=== PATIENT | female | born 1970 | race Asian ===

== ENCOUNTER 2016-07-05 02:55 | Inpatient (IN) | payer SELFPAY ==
[~2016-07-05] VITALS: Ht 158 cm; Wt 57.0 kg
[2016-07-05] MEDS ORDERED: OXYTOCIN 20 UNITS/LR PREMIX 1,000 ML IV SCH (03:11)
[2016-07-05] MEDS ORDERED: LACTATED RINGERS 1,000 ML IV SCH (03:11)
[2016-07-05 03:14] VITALS: BP 145/84
[2016-07-05] MEDS ORDERED: AMPICILLIN 2,000 MG in NACL 0.9% 100 ML IV SCH (03:15)
[2016-07-05] MEDS ORDERED: IBUPROFEN 800 MG TAB PO PRN ×2 (03:15→05:10)
[2016-07-05] MEDS ORDERED: PROMETHAZINE 25 MG/ML VIAL IVP PRN (03:15)
[2016-07-05] MEDS ORDERED: NALBUPHINE 10 MG/ML AMP IVP PRN (03:15)
[2016-07-05] MEDS ORDERED: CARBOPROST 250 MCG/ML AMP IM PRN (03:15)
[2016-07-05] MEDS ORDERED: METHYLERGONOVINE 0.2 MG/ML AMP IM SCH (03:15)
[2016-07-05] MEDS ORDERED: PROMETHAZINE 25 MG/ML VIAL ONE (03:47)
[2016-07-05] MEDS ORDERED: NALBUPHINE HYDROCHLORIDE 10 MG/ML VIAL ONE (03:47)
[2016-07-05 03:57] LABS: BASOPHILS # (AUTO) 0.1 K/uL (0.00-0.22); BASOPHILS % (AUTO) 0.6 % (0.0-2.0); EOSINOPHILS # (AUTO) 0.1 K/uL (0-0.4); EOSINOPHILS % (AUTO) 0.7 % (0.0-4.0); HEMATOCRIT 38.3 % (36-48); HEMOGLOBIN 12.5 g/dL (12.0-16.0); LYMPHOCYTES % (AUTO) 20.3 % (20.5-51.1); MEAN CORPUSCULAR HEMOGLOBIN 29 pg (27-31); MEAN CORPUSCULAR HGB CONC 33 g/dL (33-37); MEAN CORPUSCULAR VOLUME 88 fL (80-94); MONOCYTES # (AUTO) 0.5 K/uL (0.8-1.0); MONOCYTES % (AUTO) 5.4 % (1.7-9.3); NEUTROPHILS # (AUTO) 7.3 K/uL (1.8-7.7); PLATELET COUNT (AUTO) 126 K/uL (140-450); RED BLOOD CELL COUNT(AUTO) 4.37 MIL/uL (4.20-5.40); RED CELL DISTRIBUTION WIDTH 14.6 % (11.6-13.7)
[2016-07-05 04:05] LABS: ANION GAP 17.2 (8-16); CALCIUM 9.4 mg/dL (8.5-10.1); CARBON DIOXIDE 20.5 mmol/L (21-32); CREATININE 0.6 mg/dL (0.6-1.3); POTASSIUM 3.7 mmol/L (3.5-5.1)
[2016-07-05] MEDS ORDERED: OXYTOCIN 10 UNITS/ML VIAL ONE (04:05)
[2016-07-05 04:11] LABS: ALBUMIN 2.8 g/dL (3.4-5.0); TOTAL BILIRUBIN 0.3 mg/dL (0.0-1.0); TOTAL PROTEIN, SERUM 6.9 g/dL (6.4-8.2)
[2016-07-05] MEDS ORDERED: LIDOCAINE 1% 500 MG/50 ML VIAL INJ SCH (04:15)
[2016-07-05] MEDS ORDERED: LIDOCAINE 1% 0 ML ONE (04:19)
[2016-07-05] MEDS ORDERED: AMPICILLIN 2,000 MG VIAL ONE (04:22)
[2016-07-05 04:24] LABS: HIV RAPID SCREEN NON-REACTIVE (NON REACTIV)
[2016-07-05] MEDS ORDERED: BENZOCAINE/MENTHOL 20%-0.5% 60 GM CAN TP PRN (05:10)
[2016-07-05] MEDS ORDERED: OXYTOCIN 10 UNITS/ML VIAL IM PRN (05:10)
[2016-07-05] MEDS ORDERED: MEASLES, MUMPS, AND RUBELLA 1 VIAL SQVAC PRN (05:10)
[2016-07-05] MEDS ORDERED: oxyCODONE/APAP 5/325 MG 1 TAB TAB PO PRN (05:10)
[2016-07-05] MEDS ORDERED: HYDROcodone/APAP 5/325 MG 1 TAB TAB PO PRN (05:10)
[2016-07-05] MEDS ORDERED: TEMAZEPAM 15 MG CAP PO PRN (05:10)
[2016-07-05] MEDS ORDERED: METHYLERGONOVINE 0.2 MG/ML AMP IM PRN (05:10)
[2016-07-05] MEDS ORDERED: WITCH HAZEL 40 PAD PACKAGE TP PRN (05:10)
[2016-07-05] MEDS ORDERED: PREN-380 PO (05:17)
[2016-07-05] MEDS ORDERED: CALCIUM (05:17)
[2016-07-05] MEDS ORDERED: FERR-193 PO (05:17)
[2016-07-05] MEDS ORDERED: OXYTOCIN 10 UNITS/ML VIAL IM SCH (06:00)
--- NOTE | 2016-07-05 06:48 | NUR ---
PATIENT HAS BEEN SCREENED AND CATEGORIZED LOW NUTRITION RISK. PATIENT WILL BE SEEN WITHIN 7 DAYS OF ADMISSION. 07/11/16 CRISTY THAPA MS, RDN
[2016-07-05] MEDS ORDERED: AMPICILLIN 1,000 MG VIAL IVP SCH (08:00)
[2016-07-05] MEDS ORDERED: DOCUSATE SOD/SENNA 50/8.6 MG 1 TAB PO SCH (21:00)
[2016-07-06 06:23] LABS: HEMATOCRIT 33.2 % (36-48)
[2016-07-06 10:36] LABS: RAPID PLASMA REAGIN NON-REACTIVE (Non Reactiv)
== END 2016-07-07 19:47 | disposition home or self-care (01) | DRG 775 ==
LOC: MLD 02:55 → MFCC 09:12
PROVIDERS: ADMIT Obstetrics & Gynecology; ATTEND Obstetrics & Gynecology
PROC: 10E0XZZ Delivery of Products of Conception, External Approach (ICD-10-PCS; principal; 2016-07-05)
DX: O80 Encounter for full-term uncomplicated delivery (principal); Z3A.39 39 weeks gestation of pregnancy; Z37.0 Single live birth
CPT/HCPCS: 36415; 59409; 80053; 85018; 85025; 86592; 86762; 86886; 86900; 86901; 87653-90; 90715; J0290; J2001; J2300; J2550; J2590; J7120